=== PATIENT | female | born 1990 | race African-American/Black ===

== ENCOUNTER 2019-03-24 13:40 | Emergency (ER) | payer OTHER ==
[~2019-03-24] VITALS: Ht 167.6 cm; Wt 62.1 kg
[~2019-03-24 13:40] MED LIST: CIPRODEX OTIC7.5 ML OTIC; CLARITIN10 MG PO; IBUPROFEN PO
[2019-03-24] MEDS ORDERED: IBU800 MG PO (14:16)
[2019-03-24 14:26] LABS: URINE BILIRUBIN NEGATIVE (Negative); URINE BLOOD NEGATIVE (Negative); URINE CLARITY CLEAR; URINE COLOR YELLOW; URINE GLUCOSE-RANDOM* NEGATIVE (Negative); URINE KETONES NEGATIVE (Negative); URINE LEUKOCYTES-REFLEX TRACE (Negative); URINE NITRITE-REFLEX NEGATIVE (Negative); URINE PROTEIN (DIPSTICK) NEGATIVE (Negative); URINE SPECIFIC GRAVITY 1.025 (1.005-1.035); URINE UROBILINOGEN 0.2 E.U./dl (0.2-1.0)
[2019-03-24 17:01] LABS: ABSOLUTE NEUTROPHILS 3.3 thou/uL (1.4-8.2); BASOPHILS 0.7 % (0.0-2.0); EOSINOPHILS 1.1 % (0.0-3.0); HEMOGLOBIN 10.6 gm/dL (12.0-15.0); LYMPHOCYTES 35.3 % (24.0-44.0); MCHC 31.3 g/dL (28.0-37.0); MCV 70.3 fL (80.0-100.0); MONOCYTES 9.9 % (1.0-8.0); PLATELET COUNT 345 thou/uL (150-400); RBC 4.84 mil/uL (4.20-5.00); RDW 19.7 % (10.5-14.5); WBC 6.2 thou/uL (4.0-11.0)
[2019-03-24 17:10] LABS: CALCIUM 9.9 mg/dL (8.5-10.1); CREATININE 0.7 mg/dL (0.6-1.0); POTASSIUM 3.7 mmol/L (3.5-5.1)
[2019-03-24 17:16] LABS: ALBUMIN 3.8 g/dL (3.4-5.0); TOTAL BILIRUBIN 0.1 mg/dL (<0.1-1.0); TOTAL PROTEIN 9.1 g/dL (6.4-8.2)
[2019-03-24] MEDS ORDERED: FLAGYL500 M1 PO (18:34)
[2019-03-24 18:42] VITALS: BP 119/71
== END 2019-03-24 18:42 | disposition home or self-care (01) ==
LOC: ER 13:40
PROVIDERS: Physician Assistant
DX: O98.811 Other maternal infectious and parasitic diseases complicating pregnancy, first trimester (principal); A59.9 Trichomoniasis, unspecified; O99.511 Diseases of the respiratory system complicating pregnancy, first trimester; J06.9 Acute upper respiratory infection, unspecified; M25.551 Pain in right hip; R10.2 Pelvic and perineal pain; F17.210 Nicotine dependence, cigarettes, uncomplicated; F12.10 Cannabis abuse, uncomplicated; H92.09 Otalgia, unspecified ear; J02.9 Acute pharyngitis, unspecified; Z3A.09 9 weeks gestation of pregnancy